=== PATIENT | male | born 1995 | race Caucasian/White ===

== ENCOUNTER 2019-03-24 23:15 | Emergency (ER) | payer BC, SELFPAY ==
[2019-03-24 23:17] VITALS: BP 153/99; PULSE 76; RESP 18; TEMP 36.4; O2SAT 95; BMI 29.5
--- NOTE | 2019-03-24 23:26 | ED.DCSUM_ITS ---
History of Present Illness Chief Complaint: Lower Extremity Injury Informant: Patient Onset: Today Context: Gradual Onset Timing: Continuous Current Severity: Moderate Maximum Severity: Moderate Narrative: The patient is an otherwise healthy male who presents to the emergency department with atraumatic right knee redness. The patient states that they recently got a dog. He states he has been on his knees playing with the dog. He states that this morning, he noticed 2 small red bumps the lateral aspect of his anterior right knee. He states since then, the redness is increased. He denies any fevers or chills. He states that it feels like it is throbbing. He is still able to ambulate without symptoms. The patient has no history of immunosuppression. He is otherwise been in his normal state of health. Prior similar symptoms: No Recent Illness/Hospitalization: No Past Medical History - Allergies and Home Meds Allergies/Adverse Reactions: Allergies No Known Allergies Allergy (Verified 03/24/19 23:16) Primary Care Physician: Felix Coronel III, MD [Primary Care Provider] - Prior records reviewed: Yes Past Medical History: None Surgical History: no surgical history Smoking Status: Never smoker Review of Systems General: Denies: Chills, Fever, Sweats Eyes: Denies: Visual changes - bilaterally, Diplopia ENT: Denies: Rhinorrhea, Sore throat Cardiovascular: Denies: Chest pain, Palpitations Respiratory: Denies: Dyspnea, Cough, Dyspnea on exertion Gastrointestinal: Denies: Abdominal pain, Nausea, Vomiting, Diarrhea, Melena, Hematochezia Genitourinary: Denies: Dysuria, Hematuria, Frequency Musculoskeletal: Denies: Back pain, Extremity Pain Skin: Denies: Rash, Wounds Neurological: Denies: Headache, Weakness, Numbness Physical Exam Vital Signs/Narrative: Vital Signs Temp Pulse Resp BP Pulse Ox 03/24/19 23:17 97.5 F L 76 18 153/99 H 95 Inital Vital Signs reviewed: Yes General: Well nourished, Well developed, No Acute Distress Head: Normocephalic, Atraumatic Eyes: Perrl, EOMI ENT: Moist mucous membranes, No rhinorrhea Neck: Supple, Nontender Cardiovascular: Regular rate, Regular rhythm, No murmurs Respiratory: No distress, CTA bilaterally, Chest nontender Abdomen: Soft, Nontender, Nondistended, Normal bowel sounds Back: Nontender, Normal Inspection Extremities: No edema, Tenderness - There is a 4 cm ovoid patch of cellulitis lateral to the patella not overlying the bursa on the right lateral knee. There is no pain with small arc range of motion. There is no effusion of the knee. There is no central fluctuance. Skin: Normal color, No rash Neurological: Alert, Oriented x3, Cranial nerves II-XII grossly intact, Normal Strength, Normal Sensation Psychological: Normal affect, Normal Mood Diagnostic/Tx/Re-eval - Medical Decision Making The patient symptoms do seem more lateral than a prepatellar bursitis. He has some localized skin changes, but it does not seem like it involves the joint. He has no fever. He has passive and active range of motion. There is no central fluctuance. At this point, I am going to treat the patient conservatively with oral antibiotics, Shree wrap, and warm compresses. I do not feel that there is a benefit to incision and drainage, but counseled him that if this is not improving over the next 24 to 48 hours to return to the emergency department. He is comfortable with this plan of care. Impression 1. Right knee cellulitis ED Disposition - Plan for ED Patient: Instructions: Cellulitis Prescriptions: Smz/Tmp Ds [Bactrim Ds] 1 tab PO BID #14 tab Prescription Printed Cephalexin [Keflex] 500 mg PO Q6 #40 cap Prescription Printed Hydrocodone Bitart/Apap 5-325 [[place] 5MG-325MG] 1 tab PO Q6H PRN PRN 3 Days #10 tab PRN Reason: Pain Prescription Printed Referrals: Felix Coronel III, MD [Primary Care Provider] -
[2019-03-24] MEDS: Smz/Tmp Ds Tablet 1 TABLET PO (23:34)
[2019-03-24] MEDS: HYDROcodone Bitartrate/Apap 5/325 Tablet PO (23:34)
[2019-03-24] MEDS: Cephalexin Suspension 250 MG/5 ML PO.SYRINGE 500 MG PO (23:38)
== END 2019-03-24 23:41 | disposition home or self-care (01) ==
LOC: ED 23:35
PROVIDERS: Emergency Provider Emergency Medicine; Family Provider Family Medicine; PCP Family Medicine
DX: L03.115 Cellulitis of right lower limb (principal)
CPT/HCPCS: 99283

== ENCOUNTER 2020-10-11 16:01 | Emergency (ER) | payer BC, SELFPAY ==
[2020-10-11 16:02] VITALS: BP 130/80; PULSE 106; RESP 18; TEMP 37; O2SAT 99; BMI 30.9
[2020-10-11 16:05] VITALS: BP 130/80; PULSE 98; RESP 18; TEMP 37; O2SAT 99
--- NOTE | 2020-10-11 17:40 | RAD_ITS ---
HISTORY: + COVID EXAMINATION/TECHNIQUE: XR Chest 1 View: Portable upright AP chest x-ray COMPARISON: None FINDINGS: LINES/DEVICES: None. LUNGS: No consolidation, edema or effusion. No pneumothorax. MEDIASTINUM AND CARDIOVASCULAR STRUCTURES: Cardiac silhouette not enlarged. Central airways and mediastinal contour are unremarkable. BONES AND SOFT TISSUES: No acute bony abnormalities. RAD/Chest 1 View (Portable) IMPRESSION: No radiographic evidence of acute cardiopulmonary disease. at 1758 Reported and signed by: Nelson Champion MD Electronically Signed: Nelson Champion MD at 17:57 EDT Tel , Service support ,
--- NOTE | 2020-10-11 18:19 | EDS_ITS ---
HPI HPI - URI History of Present Illness Chief Complaint: Cough Narrative Narrative: Patient presents with fever, cough, and body aches, with concern for COVID-19. He states his symptoms began on Sunday, approximately 4 days ago. She had a fever all weekend, but perhaps broke yesterday. Of note, his family members have tested positive for COVID-19. He was tested yesterday, with results pending. He presents because of the cough that is nonproductive, the m yalgias, and the shortness of breath. He has chest pain when he coughs, and it also lingers even after he is not coughing. He has pronounced body aches and feels very tired. He denies any significant past medical history. ROS ROS ED ROS Narrative Constitutional: Positive fever, positive chills. Positive malaise and fatigue. HEENT: No sore throat. No neck pain. No loss of vision. No rhinorrhea. Cardiovascular: Positive chest pain. No palpitations. No pedal edema. Respiratory: Positive nonproductive cough, positive shortness of breath. Abdominal: No abdominal pain. No nausea. No vomiting. Genitourinary: No dysuria. No hematuria. Neurologic: No headaches. No dizziness. No lightheadedness. Skin: No rash. No change in color. Musculoskeletal: Positive myalgias. PFSH PFSH Home Medications cephalexin 500 mg PO Q6 #40 cap 03/24/19 [Rx Last Taken Unknown] sulfamethoxazole-trimethoprim 1 tab PO BID #14 tab 03/24/19 [Rx Last Taken Unknown] albuterol sulfate [Ventolin HFA] 1 - 2 puff INHALATION Q4H PRN PRN #18 g NS 10/11/20 [Rx Last Taken Unknown] Allergy/AdvReac Type Severity Reaction Status Date / Time No Known Allergies Allergy Verified 03/24/19 23:16 Social History Smoking Status: Never smoker EXAM Physical Exam Narrative Exam Narrative: Afebrile. Vital signs noted. HEENT: Normocephalic. Atraumatic. PERRL, EOMI. Neck soft and supple. Cardiovascular: Regular rate and rhythm. No murmurs, rubs, or gallops appreciated. Respiratory: No tachypnea. Lungs clear to auscultation bilaterally. Gastrointestinal: Abdomen soft, nontender, with normoactive bowel sounds. No rebound or guarding. Neurological: Nonfocal, nonlateralizing. Skin: No rash. Normal color. No pallor. Musculoskeletal: No pedal edema. Full range of motion extremities. Const Vital Signs: 10/11/20 16:02 10/11/20 16:05 10/11/20 16:30 Temperature 98.6 F 98.6 F Temperature Source Temporal Temporal Pulse Rate 106 H 98 Respiratory Rate 18 18 Respiratory Effort Normal Respiratory Pattern Normal Blood Pressure 130/80 H 130/80 H Blood Pressure Mean 96 96 Pulse Ox 99 99 Oxygen Delivery Method Room Air Room Air MDM MDM MDM Narrative Medical decision making narrative: Chest x-ray was obtained which shows no radiographic evidence of acute cardiopulmonary disease. At this point in time, I do feel that he can be discharged safely home, and he was told to assume that he is positive for COVID-19. She will be symptomatic. He will take [id number] antipyretics. He will self isolate at home. He will return with any increased shortness of breath, new or worsening symptoms. Disposition is discharged home in stable condition. Lab Data Attestation: I reviewed the patient's lab results. Radiography Diagnostic Testing: Radiology Impression Chest X-Ray 10/11/20 17:40 IMPRESSION: No radiographic evidence of acute cardiopulmonary disease. at 1758 Reported and signed by: Nelson Champion MD Electronically Signed: Nelson Champion MD at 17:57 EDT Tel , Service support , Discharge Plan Triage Chief Complaint: Cough ED Provider: Jai Santos Dx/Rx/DC Orders Clinical Impression: COVID-19 determined by clinical diagnostic criteria Instructions: Coronavirus Disease 2019 (COVID-19): Overview, Coronavirus Disease 2019 (COVID-19): Caring for Yourself or Others Prescriptions: New albuterol sulfate [Ventolin HFA] 90 mcg/actuation HFA aerosol inhaler 1 - 2 puff inhalation Q4H PRN PRN (Reason: Wheezing) Qty: 18 RF: 0 No Action sulfamethoxazole-trimethoprim 1 TABLET tablet 1 tab PO BID Qty: 14 RF: 0 cephalexin 500 MG capsule 500 mg PO Q6 Qty: 40 RF: 0 Primary Care Provider: Care Physician,No Primary Referrals: Care Physician,No Primary [Primary Care Provider] - Disposition Disposition: Home, Self Care
[2020-10-11 18:35] VITALS: RESP 16
== END 2020-10-11 18:36 | disposition home or self-care (01) ==
PROVIDERS: Emergency Provider Emergency Medicine
DX: U07.1 COVID-19 (principal)
CPT/HCPCS: 71045; 99282

== ENCOUNTER 2020-10-14 20:42 | Emergency (ER) | payer BC, SELFPAY ==
[2020-10-14 20:44] VITALS: BP 113/78; PULSE 90; RESP 16; TEMP 37.1; O2SAT 97; BMI 30.4
--- NOTE | 2020-10-14 21:29 | EKG12_ITS ---
Test Reason : CP Blood Pressure : / mmHG Vent. Rate : 096 BPM Atrial Rate : 096 BPM P-R Int : 128 ms QRS Dur : 084 ms QT Int : 330 ms P-R-T Axes : 044 032 023 degrees QTc Int : 416 ms Normal sinus rhythm Nonspecific T wave abnormality Abnormal ECG Confirmed by CASEY HILL, LACY ([id number]), legal editor KEYSHAWN HOGUE ([id number]) on 10/18/2020 10:05:04 AM Referred By: DAISY Confirmed By:LACY PEÑA MD
--- NOTE | 2020-10-14 21:30 | EDS_ITS ---
HPI History of Present Illness Chief Complaint: Cough Informant: patient Narrative Narrative: Patient is a 25-year-old male that was recently diagnosed with Covid presenting with worsening cough, lightheadedness, nausea and hemoptysis. Patient states he started having symptoms 1 week ago and was diagnosed earlier this week with Covid. He states for the past 2 days his cough has been intensifying and now he feels nauseous and lightheaded whenever he stands up. He states he will get dry heaves. He said decreased oral intake. He can try to drink plenty of fluids but his urine has been getting darker. Patient is complain of body aches especially in his low back and his legs. He notes that he has chest discomfort that he describes as a pressure and pleuritic in nature. He has been taking intermittent ibuprofen for symptoms. He denies any swelling of his legs. [place] any history of DVT or PE. He is not on any blood thinners. Patient states today when he went to clear his throat and cough he had small amount of blood, but no sputum. This plus his lightheadedness is what triggered him to come to the emergency room. No other complaints at this time. Patient has not had his Covid vaccine. PFSH PFSH Home Medications ibuprofen 600 mg PO Q6H PRN PRN #20 tab 10/15/20 [Rx Last Taken Unknown] ondansetron HCl [Zofran] 4 mg PO Q8H PRN #14 tab 10/15/20 [Rx Last Taken Unknown] Allergy/AdvReac Type Severity Reaction Status Date / Time No Known Allergies Allergy Verified 10/14/20 20:44 Social History Smoking Status: Never smoker ROS ROS ED Constitutional Constitutional ED: Reports chills; Denies fever(s) Eyes Eyes: Denies change in vision ENT ENT ED: Denies ear pain, rhinorrhea or sore throat Cardiovascular Cardiovascular: Reports chest pain; Denies palpitations Respiratory/Chest Respiratory/Chest: Reports cough and dyspnea on exertion; Denies dyspnea Gastrointestinal Gastrointestinal: Reports diarrhea and nausea; Denies abdominal pain, constipation or vomiting Genitourinary Genitourinary ED: Denies dysuria or hematuria Musculoskeletal Musculoskeletal: Reports back pain and myalgias; Denies arthralgias or neck pain Integumentary Denies rash Neurologic Neurologic: Reports weakness; Denies headache(s) Psychiatric Psychiatric: Denies anxiety or depression EXAM Physical Exam Const Vital Signs: 10/14/20 20:44 10/14/20 23:56 Temperature 98.7 F Temperature Source Temporal Pulse Rate 90 Respiratory Rate 16 16 Blood Pressure 113/78 Blood Pressure Mean 89 Pulse Ox 97 Positive well nourished and well developed General Appearance ED: well developed HEENT Reports dry mucous membranes Negative for tenderness Mouth ED: Yes dry mucous membranes Mouth: dry mucous membranes Eyes EOMs intact bilaterally Neck no lymphadenopathy, supple and no JVD General: Negative for tenderness Chest Wall inspection of chest normal Resp normal respiratory effort and clear to auscultation bilaterally Cardio regular rate, regular rhythm and no murmurs GI normal to inspection, nondistended, normoactive bowel sounds and non-tender Back/Spine no CVA tenderness Extremity normal to inspection General Extremety ED: Negative for edema or tenderness General Extremity: Negative for edema Neuro oriented x3, CN's II-XII intact bilaterally and no sensory deficits noted Sensorium / Orientation: alert Motor Exam: strength 5/5 throughout Psych mental status grossly normal Skin no rashes or lesions noted MDM MDM MDM Narrative Medical decision making narrative: Patient evaluated for generalized weakness and fatigue as well as hemoptysis. He said worsening cough. Patient does have a recent diagnosis of Covid. On evaluation he appears mildly dehydrated but otherwise nontoxic. Given his recent Covid diagnosis and now hemoptysis I did obtain a D-dimer as he is on day 7 of his illness and he has increased potential for clotting. This was elevated and CTA shows some mild findings consistent with a viral pneumonia but no PE. EKG does not show any acute process. His CPK is normal as well as his high sensitive troponin. He has a normal BMP and CBC. Urinalysis does show 150 ketones likely consistent with dehydration. Patient is given a liter of IV fluids as well as IV Zofran. Is also given IV Toradol. Patient be discharged home. I suspect his hemoptysis is just from localized i rritation associate with coughing. He is counseled on continued symptomatic treatment including fluids, NSAIDs and will be given a prescription for Zofran. Patient verbalizes agreement nursing with this plan. He is given return precautions. Lab Data Attestation: I reviewed the patient's lab results. Labs: Laboratory Results - last 24 hr 10/14/20 10/14/20 10/14/20 21:30 21:30 21:30 WBC 5.3 RBC 5.27 Hgb 16.1 Hct 46.8 MCV 88.8 MCH 30.6 MCHC 34.4 RDW Std Deviation 40.9 RDW Coeff of Jessica 12.5 Plt Count 116 L MPV 9.7 Immature Gran % (Auto) 0.200 Neut % (Auto) 83.8 H Lymph % (Auto) 10.9 L Hud[place] % (Auto) 4.9 Eos % (Auto) 0.0 Baso % (Auto) 0.2 Absolute Neuts (auto) 4.5 Absolute Lymphs (auto) 0.58 L Nucleated RBC % 0 Differential Comment SEE COMMENT Platelet Estimate SLT DEC RBC Morphology N CHROM Anisocytosis RARE D-Dimer Quant (PE/DVT) Sodium 141 Potassium 3.5 Chloride 107 Carbon Dioxide 24.0 Anion Gap 10 BUN 21 H Creatinine 0.93 Estim Creat Clear Calc 123.19 Est GFR (MDRD) Af Amer 125 Est GFR (MDRD) Non-Af 103 BUN/Creatinine Ratio 22.6 H Glucose 99 Calcium 8.6 Total Bilirubin 0.90 AST 29 ALT 51 Alkaline Phosphatase 68 Total Creatine Kinase 69 Troponin I High Sens 4.1 Total Protein 7.3 Albumin 3.9 Globulin 3.4 Albumin/Globulin Ratio 1.1 Lipase 123 Urine Color Yellow Urine Clarity Clear Urine pH 6.0 Ur Specific Carlton 1.020 Urine Protein 30 H Urine Glucose (UA) Normal Urine Ketones 150 A* Urine Occult Blood Negative Urine Nitrite Negative Urine Bilirubin Negative Urine Urobilinogen 4 H Ur Leukocyte Esterase 25 H Urine RBC 0 SEEN Urine WBC 0 SEEN Ur Squamous Epith Cells 0 SEEN Urine Bacteria RARE Urine Mucus 1+ 10/14/20 21:41 WBC RBC Hgb Hct MCV MCH MCHC RDW Std Deviation RDW Coeff of Jessica Plt Count MPV Immature Gran % (Auto) Neut % (Auto) Lymph % (Auto) Hudspeth % (Auto) Eos % (Auto) Baso % (Auto) Absolute Neuts (auto) Absolute Lymphs (auto) Nucleated RBC % Differential Comment Platelet Estimate RBC Morphology Anisocytosis D-Dimer Quant (PE/DVT) 0.50 H Sodium Potassium Chloride Carbon Dioxide Anion Gap BUN Creatinine Estim Creat Clear Calc Est GFR (MDRD) Af Amer Est GFR (MDRD) Non-Af BUN/Creatinine Ratio Glucose Calcium Total Bilirubin AST ALT Alkaline Phosphatase Total Creatine Kinase Troponin I High Sens Total Protein Albumin Globulin Albumin/Globulin Ratio Lipase Urine Color Urine Clarity Urine pH Ur Specific Carlton Urine Protein Urine Glucose (UA) Urine Ketones Urine Occult Blood Urine Nitrite Urine Bilirubin Urine Urobilinogen Ur Leukocyte Esterase Urine RBC Urine WBC Ur Squamous Epith Cells Urine Bacteria Urine Mucus Radiography Diagnostic Testing: Radiology Impression Chest X-Ray 10/14/20 22:00 IMPRESSION: No evidence of acute cardiopulmonary process. at 2231 Reported and signed by: Darius Vyas MD Electronically Signed: Darius Vyas MD at 22:30 EDT Tel , Service support , Chest CTA 10/14/20 22:29 IMPRESSION: 1. Limited opacification of the pulmonary artery degrades exam. No suspicious filling defect in the pulmonary arteries to suggest pulmonary embolism. 2. Numerous small patchy bilateral groundglass opacities most prominent in the lower lungs compatible with atypical viral pneumonia in the appropriate setting. 3. Mild reactive mediastinal and bilateral hilar adenopathy. Individualized dose optimization techniques were used for this CT. at 0013 Reported and signed by: Darius Vyas MD Electronically Signed: Darius Vyas MD at 0:12 EDT Tel , Service support , Rhythm Strip Rhythm Strip: Sinus Rhythm Rate: 96 Ectopy: None EKG Initial EKG: Attestation: I personally reviewed and interpreted this EKG as follows: Interpretation: Sinus Rhythm Comments: Normal sinus rhythm at a rate of 96 Normal axis Normal intervals Normal ST segments Discharge Plan Triage Chief Complaint: Cough ED Provider: Lucy Torres Dx/Rx/DC Orders Clinical Impression: Dehydration, Cough with hemoptysis, COVID-19 determined by clinical diagnostic criteria Instructions: Coronavirus Disease 2019 (COVID-19): Caring for Yourself or Others, ED Hemoptysis Prescriptions: New ondansetron HCl [Zofran] 4 mg tablet 4 mg PO Q8H PRN (Reason: nausea and vomiting) Qty: 14 RF: 0 ibuprofen 600 mg tablet 600 mg PO Q6H PRN PRN (Reason: fever or pain) Qty: 20 RF: 0 Primary Care Provider: Care Physician,No Primary Referrals: Care Physician,No Primary [Primary Care Provider] - Disposition Disposition: Home, Self Care
[2020-10-14] MEDS: Ketorolac 15 MG/ML Vial IV (21:40)
[2020-10-14] MEDS: 0.9% Normal Saline 1,000 ML 1000 ML IV (21:40)
[2020-10-14] MEDS: Ondansetron 4 MG/2 ML Vial IV (21:41)
[2020-10-14 21:43] LABS: Red Blood Cells-Urine 0 SEEN /hpf (0-5); Squamous Epithelial Cells - UA 0 SEEN /hpf (0-5); White Blood Cells 0 SEEN /hpf (0-5)
[2020-10-14 21:47] LABS: Color, Urine Yellow (Yellow); Glucose, Dipstick Normal (Normal); Leukocyte Esterase-Dipstick 25 /ul (Negative); Nitrite-Dipstick Negative (Negative); Occult Blood-Urine Negative /ul (Negative); Protein-Dipstick 30 mg/dl (Negative); Urine Bilirubin Dipstick Negative (Negative); Urine Clarity Clear (Clear); Urine Urobilinogen 4 mg/dl (Normal)
[2020-10-14 21:54] LABS: Ketone-Dipstick 150 mg/dl (Negative)
[2020-10-14 21:56] LABS: Bacteria RARE /hpf (None Seen); Mucous, Urine 1+ /hpf (<or=2+)
--- NOTE | 2020-10-14 22:00 | RAD_ITS ---
HISTORY: chest pain, cough EXAMINATION/TECHNIQUE: XR Chest 1 View: COMPARISON: October 11, 2020 FINDINGS: LINES/DEVICES: None. LUNGS: No airspace consolidation. Unremarkable interstitium. No effusion. No pneumothorax. MEDIASTINUM: No cardiomegaly. MUSCULOSKELETAL: No acute osseous finding. RAD/Chest 1 View (Portable) IMPRESSION: No evidence of acute cardiopulmonary process. at 2231 Reported and signed by: Darius Vyas MD Electronically Signed: Darius Vyas MD at 22:30 EDT Tel , Service support ,
[2020-10-14 22:03] LABS: Absolute Lymphocyte Count 0.58 X10^3/uL (0.83-4.51); Absolute Neutrophil Count 4.5 X10^3/uL (2.0-7.7); Basophil# 0.01 X10^3/uL; Basophil% 0.2 % (0-1); Hematocrit 46.8 % (40-54); Hemoglobin 16.1 g/dL (13.0-16.5); Lymphocyte # 0.58 X10^3/ul (0.83-4.51); Lymphocyte % 10.9 % (19-41); Mean Corp Hgb Conc 34.4 g/dL (32-36); Mean Corpuscular Hgb 30.6 pg (27.0-32.0); Mean Corpuscular Volume 88.8 fL (80-94); Mean Platelet Vol. 9.7 fl (6.2-12.0); Monocyte# 0.26 X10^3/uL; Monocyte% 4.9 % (0-10); NRBC Flagged by Analyzer 0 % (0-5); Neutrophil # 4.45 X10^3/uL (2.7-7.7); Neutrophil % 83.8 % (47-70); POSITIVE DIFFERENTIAL YES; Platelet Count 116 K/mm3 (150-450); RBC Distribution Width CV 12.5 % (11.6-14.6); RBC Distribution Width SD 40.9 fl (35.1-43.9); Red Blood Count 5.27 M/mm3 (4.6-6.2); White Blood Count 5.3 K/mm3 (4.4-11.0)
[2020-10-14 22:12] LABS: ALB/GLOB Ratio 1.1 RATIO (0.9-2.4); AST(SGOT) 29 U/L (15-37); Alanine Aminotransfer ALT/SGPT 51 U/L (16-61); Albumin, Serum 3.9 g/dL (3.2-5.0); Alkaline Phosphatase 68 U/L (45-117); Anion Gap 10 (5-15); BUN 21 mg/dL (7-18); BUN/Creat Ratio 22.6 RATIO (10-20); CPK Total, Creatine Kinase 69 U/L (39-308); Calcium,Total 8.6 mg/dL (8.5-10.1); Chloride 107 mmol/L (98-107); Creatinine, Serum 0.93 mg/dL (0.70-1.30); EST Glomerular Filtration Rate 103 mL/min (>60); Est Glom Filt Rate - Afr Amer 125 mL/min (>60); Estimated Creatinine Clearance 123.19 ml/min; Globulin 3.4 g/dL (2.2-4.2); Glucose 99 mg/dL (74-106); Lipase 123 U/L (73-393); Potassium 3.5 mmol/L (3.5-5.1); Protein, Total 7.3 g/dL (6.4-8.2); Sodium Level 141 mmol/L (136-145); Troponin-I HS 4.1 pg/mL (3.0-78.5)
[2020-10-14 22:22] LABS: Differential Indicated SCAN CRITERIA MET
--- NOTE | 2020-10-14 22:29 | CT_ITS ---
HISTORY: cough, + covid, hemoptysis TECHNIQUE: Helically acquired images were obtained of the chest following 100mL Isovue-370 IV contrast as per pulmonary angiogram protocol with 3D reconstructions. A radiation dose optimization technique was used for this scan. COMPARISON: Chest radiograph October 14, 2020 FINDINGS: # of images incl. paperwork: [id number] THYROID IMAGED PORTION: Unremarkable. PULMONARY ARTERIES: Limited pulmonary arterial enhancement with contrast bolus timing favoring the aorta. No suspicious filling defects within the pulmonary arteries to suggest bone embolus. No gross arterial enlargement. AORTA/AORTIC ARCH: No ectasia. No dissection. HEART/PERICARDIUM: No cardiomegaly. No significant pericardial fluid. ADENOPATHY: Scattered mediastinal and bilateral hilar lymph nodes up to 6 mm in short axis. LUNG PARENCHYMA: Numerous small patchy bilateral groundglass airspace opacity most prominent in the lung bases PLEURAL EFFUSION: None. PNEUMOTHORAX: None. UPPER ABDOMEN IMAGED PORTION: Unremarkable. MUSCULOSKELETAL: No acute osseous finding. CT/CTA Chest W/WO Contrast IMPRESSION: 1. Limited opacification of the pulmonary artery degrades exam. No suspicious filling defect in the pulmonary arteries to suggest pulmonary embolism. 2. Numerous small patchy bilateral groundglass opacities most prominent in the lower lungs compatible with atypical viral pneumonia in the appropriate setting. 3. Mild reactive mediastinal and bilateral hilar adenopathy. Individualized dose optimization techniques were used for this CT. at 0013 Reported and signed by: Darius Vyas MD Electronically Signed: Darius Vyas MD at 0:12 EDT Tel , Service support ,
[2020-10-14 22:36] LABS: Anisocytosis RARE; Platelet Estimate SLT DEC (ADEQ); Red Cell Morphology N CHROM NORMAL (NORM C&C)
[2020-10-14 23:56] VITALS: RESP 16
[2020-10-15 00:34] VITALS: BP 116/64; PULSE 90; RESP 18; O2SAT 98
== END 2020-10-15 00:35 | disposition home or self-care (01) ==
PROVIDERS: Emergency Provider Emergency Medicine
DX: U07.1 COVID-19 (principal); E86.0 Dehydration; R04.2 Hemoptysis
CPT/HCPCS: 71045; 71275; 80053; 81001; 82550; 83690; 84484; 85025; 85379; 93005; 96361; 96374; 96375; 99282; J7030; Q9967; A4216; J2405

== ENCOUNTER 2020-10-19 11:59 | Observation (INO) | payer BC, SELFPAY ==
[2020-10-19] VITALS (9 sets, daily range): BP systolic 111–131; BP diastolic 72–98; PULSE 78–113; RESP 18–26; TEMP 36.3–38.1; O2SAT 92–96; BMI 29.3; BMI 27.4
--- NOTE | 2020-10-19 12:22 | EX.ED.DYSGE1 ---
HPI History of Present Illness Chief Complaint: Fever Detail of Chief Complaint: Cough and shortness of breath Narrative Narrative: Patient presents to the emergency department with complaint of shortness of breath and cough. Patient complains of fatigue and body aches. He is lost sense of taste and smell. Patient was diagnosed with COVID-19 8 days ago and has had symptoms for about 11 days. Patient's fianc? had Covid about 3 weeks ago and had a mild version. Patient does not have some sputum production at times and coughing up some clear phlegm. He has had nausea and dry heaves. Patient has had 2 other visits to the ER for same and on October 14 had a CTA of the chest that was negative for PE. Prior similar symptoms: No PFSH PFSH Home Medications ibuprofen 600 mg PO Q6H PRN PRN #20 tab 10/15/20 [Rx Last Taken Unknown] ondansetron HCl [Zofran] 4 mg PO Q8H PRN #14 tab 10/15/20 [Rx Last Taken Unknown] Allergy/AdvReac Type Severity Reaction Status Date / Time No Known Allergies Allergy Verified 10/19/20 11:59 Social History Smoking Status: Never smoker ROS ROS ED Constitutional Constitutional ED: Reports systems reviewed and no addt'l complaints, except as documented and fever(s); Denies body ache(s), change in weight or chills Eyes Eyes: Denies acute decrease in peripheral vision, change in vision, double vision or loss of vision ENT ENT ED: Reports none; Denies ear pain, lip swelling, loss taste/smell, neck pain, otalgia or sore throat Cardiovascular Cardiovascular: Reports none; Denies abdominal pain, chest pain with activity, leg edema, lightheadedness, palpitations, rapid heart rate or syncope Respiratory/Chest Respiratory/Chest: Reports none and cough; Denies change in mental status, dry cough, dyspnea, hemoptysis, shortness of breath at rest or shortness of breath with exertion Gastrointestinal Gastrointestinal: Reports none and nausea; Denies abdominal pain, change in stool character, diarrhea, hematemesis, hematochezia, melena, rectal bleeding or vomiting Genitourinary Genitourinary ED: Reports none; Denies abdominal discomfort, anuria, dysuria, genital pain or polyuria Musculoskeletal Musculoskeletal: Reports none and myalgias; Denies arthralgias, back pain, difficulty walking, extremity pain or muscle weakness Integumentary Reports none; Denies abscess or rash Neurologic Neurologic: Reports none and headache(s); Denies abnormal gait, confusion, focal weakness, frequent falls, loss of vision, numbness, paresthesias, radicular pain, vertigo or weakness Psychiatric Psychiatric: Reports systems reviewed and no addt'l complaints, except as documented and none; Denies behavioral changes, confusion, difficulty concentrating, hallucinations, suicidal ideation, tactile hallucinations or visual hallucinations Endocrine Endocrinology: Denies none, cold intolerance, excessive sweating, fatigue or heat intolerance Hematologic/Lymphatic Hematologic/Lymphatic: Reports none; Denies anemia, easy bleeding or easy bruising Allergic/Immunologic Allergic/Immunologic ED: Denies as per HPI, none, lip swelling, mouth swelling, throat swelling, tongue swelling or hives EXAM Physical Exam Const Vital Signs: 10/19/20 12:00 10/19/20 12:39 Temperature 97.3 F L 97.6 F L Temperature Source Temporal Temporal Pulse Rate 113 H 102 H Respiratory Rate 18 26 H Respiratory Effort Short of Breath Respiratory Pattern Tachypnea Blood Pressure 111/88 H 131/77 H Blood Pressure Mean 95 95 Pulse Ox 92 94 Oxygen Delivery Method Room Air Room Air Positive well nourished and well developed General Appearance ED: well developed and NAD HEENT Reports TM's clear and moist mucous membranes normocephalic and atraumatic; Negative for trauma or tenderness Tympanic Membrane ED: Yes TM's clear Eyes PERRL and EOMs intact bilaterally General Eye ED: Negative for pale conjunctiva or scleral icterus Neck no lymphadenopathy, supple and no JVD General: Negative for tenderness Chest Wall inspection of chest normal and palpation of chest normal Chest: Negative for tenderness Resp normal respiratory effort and No clear to auscultation bilaterally Effort and Inspection: Negative for respiratory distress or pain with movement Auscultation: rhonchi; Negative for wheezes or diminished lung sounds Cardio regular rate, regular rhythm, S1 normal heart sound, S2 normal heart sound and no murmurs Peripheral Pulses: pulses 2+ throughout GI normal to inspection, nondistended, normoactive bowel sounds, soft to palpation, non-tender, non-distended and no masses Back/Spine no CVA tenderness and no thoracic nor lumbar tenderness Extremity normal to inspection General Extremety ED: Negative for edema General Extremity: Negative for edema Neuro oriented x3, CN's II-XII intact bilaterally, no sensory deficits noted and gait normal Sensorium / Orientation: awake, alert, oriented to person, oriented to place and oriented to time Motor Exam: strength 5/5 throughout and strength abnormal Psych mental status grossly normal Skin no rashes or lesions noted and no wounds MDM MDM MDM Narrative Medical decision making narrative: Patient had an ambulatory pulse ox of 89%. Chest x-ray shows bilateral infiltrates consistent with Covid pneumonia. Case will be discussed with hospitalist evaluate patient for admission Lab Data Attestation: I reviewed the patient's lab results. Labs: Laboratory Results - last 24 hr 10/19/20 10/19/20 10/19/20 12:32 12:32 12:32 WBC 5.8 RBC 4.94 Hgb 15.3 Hct 42.8 MCV 86.6 MCH 31.0 MCHC 35.7 RDW Std Deviation 39.8 RDW Coeff of Jessica 12.4 Plt Count 149 L MPV 9.1 Immature Gran % (Auto) 0.500 Neut % (Auto) 84.7 H Lymph % (Auto) 10.1 L [place] % (Auto) 4.5 Eos % (Auto) 0.0 Baso % (Auto) 0.2 Absolute Neuts (auto) 4.9 Absolute Lymphs (auto) 0.59 L Nucleated RBC % 0 Differential Comment SCANNED Sodium 140 Potassium 3.7 Chloride 105 Carbon Dioxide 27.0 Anion Gap 8 BUN 14 Creatinine 0.82 Estim Creat Clear Calc 139.72 Est GFR (MDRD) Af Amer 145 Est GFR (MDRD) Non-Af 120 BUN/Creatinine Ratio 17.2 Glucose 100 Lactic Acid 1.0 Calcium 8.6 Radiography Chest X-Ray - ED: 1 View Diagnostic Testing: Radiology Impression Chest X-Ray 10/19/20 12:45 IMPRESSION: Bilateral pneumonia. CT may be useful. Electronically Signed: David Jones MD at 13:01 EDT Tel , Service support , 1 view chest x-ray obtained interpreted by myself as bilateral infiltrates. Radiology in agreement. Discharge Plan Dx/Rx/DC Orders Clinical Impression: Pneumonia due to 2019 novel coronavirus, Hypoxemia Disposition Disposition: Acute Care Hospital [facility]
[2020-10-19] MEDS: Ondansetron 4 MG/2 ML Vial IV (12:42)
--- NOTE | 2020-10-19 12:45 | RAD_ITS ---
STUDY: X-RAY CHEST REASON FOR EXAM: Male, 25 years old. dyspnea TECHNIQUE: Single AP portable view of the chest. COMPARISON: 10/14/2020 FINDINGS: Patchy alveolar opacities in both lungs consistent with bilateral pneumonia. There is no demonstrated pleural abnormality. Normal size heart. Normal mediastinum and ericka. Normal visualized pulmonary arteries. Normal visualized aortic arch and descending thoracic aorta. Normal visualized thoracic spine. Normal visualized ribs, clavicles, and shoulders. There is no demonstrated abnormality of the visualized soft tissue structures of the upper abdomen. RAD/Chest 1 View (Portable) IMPRESSION: Bilateral pneumonia. CT may be useful. Electronically Signed: David Jones MD at 13:01 EDT Tel , Service support ,
[2020-10-19 12:49] LABS: Absolute Lymphocyte Count 0.59 X10^3/uL (0.83-4.51); Absolute Neutrophil Count 4.9 X10^3/uL (2.0-7.7); Basophil# 0.01 X10^3/uL; Basophil% 0.2 % (0-1); Hematocrit 42.8 % (40-54); Hemoglobin 15.3 g/dL (13.0-16.5); Lymphocyte # 0.59 X10^3/ul (0.83-4.51); Lymphocyte % 10.1 % (19-41); Mean Corp Hgb Conc 35.7 g/dL (32-36); Mean Corpuscular Volume 86.6 fL (80-94); Mean Platelet Vol. 9.1 fl (6.2-12.0); Monocyte# 0.26 X10^3/uL; Monocyte% 4.5 % (0-10); NRBC Flagged by Analyzer 0 % (0-5); Neutrophil # 4.94 X10^3/uL (2.7-7.7); Neutrophil % 84.7 % (47-70); POSITIVE DIFFERENTIAL YES; Platelet Count 149 K/mm3 (150-450); RBC Distribution Width CV 12.4 % (11.6-14.6); RBC Distribution Width SD 39.8 fl (35.1-43.9); Red Blood Count 4.94 M/mm3 (4.6-6.2); White Blood Count 5.8 K/mm3 (4.4-11.0)
[2020-10-19 12:50] LABS: Differential Indicated SCAN CRITERIA MET
[2020-10-19 13:03] LABS: Anion Gap 8 (5-15); BUN 14 mg/dL (7-18); BUN/Creat Ratio 17.2 RATIO (10-20); Calcium,Total 8.6 mg/dL (8.5-10.1); Chloride 105 mmol/L (98-107); Creatinine, Serum 0.82 mg/dL (0.70-1.30); EST Glomerular Filtration Rate 120 mL/min (>60); Est Glom Filt Rate - Afr Amer 145 mL/min (>60); Estimated Creatinine Clearance 139.72 ml/min; Glucose 100 mg/dL (74-106); Potassium 3.7 mmol/L (3.5-5.1); Sodium Level 140 mmol/L (136-145)
[2020-10-19 13:15] LABS: Differential Comment SCANNED
--- NOTE | 2020-10-19 13:26 | PCM.HP.STD ---
HPI - General General Date of Admission: 10/19/20 Date of Service: 10/19/20 Chief Complaint: Recent COVID +, ongoing F/C/SOB/N/V HPI Narrative The patient is a 25 y/o M w/ PMHx: Overweight, Anxiety, history of recently diagnosed Covid with cough, lightheadedness, nausea, emesis with symptoms initially starting approximately on October 08 with eventual ED evaluation 10/14/2020 for ongoing worsening Covid symptoms discharged at that time given clinical stability with 10/14/2020 CTPA with appearance of Covid pneumonia at that time with no obvious evidence of PE who now re-presents to the [facility] ED on 10/19/20 with worsening fatigue, malaise, body aches, minimally productive cough with dyspnea with nausea, dry heaves not improving prompt eventual ED presentation. Patient was not vaccinated for Covid. Patient significant was also ill with Covid but did recover. Work-up in the ED included T 97.6, heart rate 113, BP 131/77, respiratory rate 26, oxygenation range 92 to 94% on room air, CBC with WBC 5.8, hemoglobin 15.3, platelet 149 with lymphopenia, BMP unremarkable, lactic acid 1.0, chest x-ray with bilateral patchy alveolar opacities consistent with Covid pneumonia, blood culture x2 pending per ED. In the ED patient ministered Zofran as well as Decadron 6 mg IV x1. [facility] Medical History (Updated 10/19/20 @ 16:33 by Giselle Cleaning) Anxiety Inguinal hernia Home Medications ibuprofen 600 mg PO Q6H PRN PRN #20 tab 10/15/20 [Rx Last Taken 10/19/20] ondansetron HCl [Zofran] 4 mg PO Q8H PRN #14 tab 10/15/20 [Rx Last Taken 10/18/20] albuterol sulfate 1 - 2 inh INHALATION Q4H PRN 10/19/20 [History Last Taken 10/18/20] multivitamin 1 tab PO DAILY 10/19/20 [History Last Taken 10/19/20] Allergy/AdvReac Type Severity Reaction Status Date / Time No Known Allergies Allergy Verified 10/19/20 11:59 Family History (Updated 10/19/20 @ 20:[address] Shruthi Morrow MD) Father Hypertension HLD (hyperlipidemia) unable to obtain (Patient does not know any of his maternal family history.) Surgical History (Updated 10/19/20 @ 20:[address] Shruthi Morrow MD) S/P inguinal hernia repair Social History (Updated 10/19/20 @ 20:[address] Shruthi Morrow MD) household members: significant other Smoking Status: Never smoker alcohol intake: never substance use type: does not use ROS ROS Narrative Admission Review of Systems: CONSTITUTIONAL: No weight loss, + fever, chills, weakness or fatigue. HEENT: Eyes: No visual loss, blurred vision, double vision or yellow sclerae. Ears, Nose, Throat: No hearing loss, sneezing, congestion, runny nose or sore throat. SKIN: No rash or itching, lesions, wounds. CARDIOVASCULAR: + Pleuritic chest discomfort. No palpitations, edema, orthopnea, syncopal events. RESPIRATORY: + shortness of breath, cough with mild sputum, No wheezing. GASTROINTESTINAL: + anorexia, nausea, vomiting, diarrhea, abdominal pain, No melena, BRBPR. GENITOURINARY: No dysuria, frequency, urgency or retention. NEUROLOGICAL: No headache, dizziness, syncope, paralysis, ataxia, numbness or tingling in the extremities, focal weakness, change in bowel or bladder control, seizure. MUSCULOSKELETAL: + muscle, back pain, joint pain or stiffness. HEMATOLOGIC: No anemia, bleeding or bruising. LYMPHATICS: No enlarged nodes. No history of splenectomy. PSYCHIATRIC: + history of depression or anxiety. ENDOCRINOLOGIC: No reports of sweating, cold or heat intolerance. No polyuria or polydipsia. ALLERGIES: No history of asthma, hives, eczema or rhinitis. Vital Signs Vital Signs Vital Signs: 10/19/20 12:00 10/19/20 12:39 Temperature 97.3 F L 97.6 F L Temperature Source Temporal Temporal Pulse Rate 113 H 102 H Respiratory Rate 18 26 H Respiratory Effort Short of Breath Respiratory Pattern Tachypnea Blood Pressure 111/88 H 131/77 H Blood Pressure Mean 95 95 Pulse Ox 92 94 Oxygen Delivery Method Room Air Room Air Weight Weight: 204 lb 12.951 oz Body Mass Index (BMI) 29.3 Physical Exam Narrative Physical Examination: General: Awake, alert, oriented x 3 and cooperative, laying in the ED bed, fatigued appearing, no obvious distress. Skin: Normal color, normal turgor, no icterus, no cyanosis. HEENT: AT/NC, EOMI, PERRLA, dry MM, no carotid bruits or JVD noted. Lungs: Notably diminished, greater bases, decreased effort secondary to pleuritic pain with deep inspiration, no rales, ronchi or wheezing. Heart: Mildly tachycardic with regular rhythm; no gallop, rub audible. Abdomen: Soft, overweight, generalized discomfort with palpation with no rebound or guarding, ND, moderately hyperactive BS, no obvious HSM. Extremities: No cyanosis, clubbing, or edema. Neurological: Patient awake, alert, oriented as noted, cognitive function intact; pupils equally reactive to light and accommodation, cranial nerves II-XII grossly normal, moving all 4 extremities, no focal deficits, strength moderately global degree secondary to acute presentation. Psychiatric: Affect appears fatigued, ill-appearing, no acute evidence of depressive or anxiety feelings. Results Lab / Micro Data Result Diagrams: 10/19/20 12:32 10/19/20 12:32 Labs: Laboratory Results - last 24 hr 10/19/20 12:32: WBC 5.8, RBC 4.94, Hgb 15.3, Hct 42.8, MCV 86.6, MCH 31.0, MCHC 35.7, RDW Std Deviation 39.8, RDW Coeff of Jessica 12.4, Plt Count 149 L, MPV 9.1, Immature Gran % (Auto) 0.500, Neut % (Auto) 84.7 H, Lymph % (Auto) 10.1 L, [place] % (Auto) 4.5, Eos % (Auto) 0.0, Baso % (Auto) 0.2, Absolute Neuts (auto) 4.9, Absolute Lymphs (auto) 0.59 L, Nucleated RBC % 0, Differential Comment SCANNED 10/19/20 12:32: Sodium 140, Potassium 3.7, Chloride 105, Carbon Dioxide 27.0, Anion Gap 8, BUN 14, Creatinine 0.82, Estim Creat Clear Calc 139.72, Est GFR (MDRD) Af Amer 145, Est GFR (MDRD) Non-Af 120, BUN/Creatinine Ratio 17.2, Glucose 100, Calcium 8.6 10/19/20 12:32: Lactic Acid 1.0 Radiology Impression Chest X-Ray 10/19/20 12:45 IMPRESSION: Bilateral pneumonia. CT may be useful. Electronically Signed: David Jones MD at 13:01 EDT Tel , Service support , Assessment & Plan Assessment/Plan (1) Hypoxemia: (2) Pneumonia due to 2019 novel coronavirus: PLAN: The patient is a 25 y/o M w/ PMHx: Overweight, Anxiety and Depression, history of recently diagnosed Covid with cough, lightheadedness, nausea, emesis with symptoms initially starting approximately on October 08 with eventual ED evaluation 10/14/2020 for ongoing worsening Covid symptoms discharged at that time given clinical stability with 10/14/2020 CTPA with appearance of Covid pneumonia at that time with no obvious evidence of PE who now re-presents to the [facility] ED on 10/19/20 with worsening COVID symptoms. 1. Acute Dyspnea, Cough, Fever with Bilateral Pneumonia secondary to Acute Viral Syndrome, COVID-19, Worsening with Hypoxia: Will admit to the COVID unit, will maintain on oxygen with wean as tolerated to room air, PRN albuterol, HOB, IS parameters w/ pending sputum cultures, respiratory viral panel and urine antigens, will obtain repeat D-dimer, procalcitonin, CRP, CPK, Ferritin, LDH, trop and BNP as well as hepatic profile, continue supportive care including q 2 hour turning including prone given no prone bed availability and judicious hydration, closely monitor for worsening status for ARDS and multiorgan failure, will consult Infectious disease, will initiate and continue IV decadron x 10 doses, given presentation timeline not candidate for IV remdesivir. 2. Anxiety depression: Not on regimen, encourage continued outpatient follow-up with his primary care physician especially given recent presentation ongoing illness with potentially prolonged recovery. 3. DVT Prophylaxis: SCDs, Lovenox. Charges/Coding Visit Charges OBSV E&M: 46532 Initial observation care L3
[2020-10-19 14:25] LABS: D-Dimer Quantitative (DVT/PE) 0.95 FEU/ug/m (0.27-0.49)
[2020-10-19 14:32] LABS: AST(SGOT) 42 U/L (15-37); Alanine Aminotransfer ALT/SGPT 39 U/L (16-61); Albumin, Serum 3.5 g/dL (3.2-5.0); Alkaline Phosphatase 53 U/L (45-117); Bilirubin, Direct 0.33 mg/dL (0.00-0.30); Ferritin 684 ng/mL (26-388); Globulin 3.6 g/dL (2.2-4.2); LDH 542 U/L (87-241); Protein, Total 7.1 g/dL (6.4-8.2); Troponin-I HS 6.2 pg/mL (3.0-78.5)
[2020-10-19] MEDS: dexAMETHasone 4 MG/ML Vial 6 MG IV (15:07)
[2020-10-19] MEDS: 0.9% Normal Saline 1,000 ML 100 ML IV (17:59)
[2020-10-19] MEDS: guaiFENesin 10 ML UDC (200MG/10ML) 20 ML PO ×2 (18:00→22:37)
[2020-10-19] MEDS: Ibuprofen 400 MG Tablet PO ×2 (18:00→22:37)
[2020-10-19] MEDS: Enoxaparin 40 MG/0.4 ML Syringe SC (18:03)
[2020-10-19] MEDS: Famotidine 20 MG Tablet PO (18:03)
[2020-10-19] MEDS: Temazepam 15 MG Capsule PO (22:37)
[2020-10-19] MEDS: BENZOCAINE/MENTHOL 1 LOZENGE MUCOUS MEM (22:37)
[2020-10-20] VITALS (11 sets, daily range): BP systolic 117–131; BP diastolic 67–83; PULSE 64–79; RESP 18–20; TEMP 36.5–37.1; O2SAT 92–96
[2020-10-20] MEDS: BENZOCAINE/MENTHOL 1 LOZENGE MUCOUS MEM (04:17)
[2020-10-20] MEDS: guaiFENesin 10 ML UDC (200MG/10ML) 20 ML PO (04:17)
[2020-10-20] MEDS: 0.9% Normal Saline 1,000 ML 100 ML IV ×3 (04:20→21:53)
[2020-10-20] MEDS: Ondansetron 4 MG/2 ML Vial IV ×3 (04:27→23:39)
[2020-10-20 07:19] LABS: Absolute Neutrophil Count 2.4 X10^3/uL (2.0-7.7); Hematocrit 41.5 % (40-54); Hemoglobin 14.3 g/dL (13.0-16.5); Lymphocyte % 21.1 % (19-41); Mean Corp Hgb Conc 34.5 g/dL (32-36); Mean Corpuscular Hgb 30.6 pg (27.0-32.0); Mean Corpuscular Volume 88.9 fL (80-94); Mean Platelet Vol. 9.5 fl (6.2-12.0); Monocyte# 0.21 X10^3/uL; Monocyte% 6.3 % (0-10); NRBC Flagged by Analyzer 0 % (0-5); Neutrophil # 2.38 X10^3/uL (2.7-7.7); Neutrophil % 71.7 % (47-70); Platelet Count 148 K/mm3 (150-450); RBC Distribution Width CV 12.8 % (11.6-14.6); RBC Distribution Width SD 41.5 fl (35.1-43.9); Red Blood Count 4.67 M/mm3 (4.6-6.2); White Blood Count 3.3 K/mm3 (4.4-11.0)
[2020-10-20 07:40] LABS: AST(SGOT) 32 U/L (15-37); Alanine Aminotransfer ALT/SGPT 32 U/L (16-61); Albumin, Serum 3.2 g/dL (3.2-5.0); Alkaline Phosphatase 45 U/L (45-117); Anion Gap 7 (5-15); BUN 18 mg/dL (7-18); BUN/Creat Ratio 32.8 RATIO (10-20); Calcium,Total 8.3 mg/dL (8.5-10.1); Chloride 109 mmol/L (98-107); Creatinine, Serum 0.55 mg/dL (0.70-1.30); EST Glomerular Filtration Rate 190 mL/min (>60); Est Glom Filt Rate - Afr Amer 230 mL/min (>60); Estimated Creatinine Clearance 208.31 ml/min; Globulin 3.2 g/dL (2.2-4.2); Glucose 136 mg/dL (74-106); Potassium 3.9 mmol/L (3.5-5.1); Protein, Total 6.4 g/dL (6.4-8.2); Sodium Level 142 mmol/L (136-145)
[2020-10-20] MEDS: Famotidine 20 MG Tablet PO ×2 (09:37→21:50)
[2020-10-20] MEDS: Enoxaparin 40 MG/0.4 ML Syringe SC ×2 (09:38→21:50)
[2020-10-20] MEDS: dexAMETHasone 10 MG/ML Vial 6 MG IV (09:38)
--- NOTE | 2020-10-20 11:42 | PN.HOSP_ITS ---
Subjective Subjective Patient seen and examined. He felt well and said he had had a bit of nausea but no vomiting. He was on room air and did not feel short of breath. He denied any fever or chills but did admit to lethargic. Review of systems otherwise negative. He has been managed for COVID-19 infection. Objective Data Objective Data Vital Signs: Vital Signs Temp Pulse Resp BP Pulse Ox 98.5 F 79 18 117/70 95 10/20/20 09:28 10/20/20 09:28 10/20/20 09:28 10/20/20 09:28 10/20/20 09:28 Oxygen Delivery Method Room Air Weight: 226 lb 10.163 oz Body Mass Index (BMI) 27.4 Intake & Output: Intake and Output for Last 24 Hours 10/18/20 10/19/20 10/20/20 23:59 23:59 23:59 Intake Total 220 / 220 1000 / 1000 Output Total 220 / 220 Balance 0 / 0 1000 / 1000 Lab / Micro Data Result Diagrams: 10/20/20 06:42 10/20/20 06:42 Labs: Laboratory Results - last 24 hr 10/19/20 12:32: WBC 5.8, RBC 4.94, Hgb 15.3, Hct 42.8, MCV 86.6, MCH 31.0, MCHC 35.7, RDW Std Deviation 39.8, RDW Coeff of Jessica 12.4, Plt Count 149 L, MPV 9.1, Immature Gran % (Auto) 0.500, Neut % (Auto) 84.7 H, Lymph % (Auto) 10.1 L, [place] % (Auto) 4.5, Eos % (Auto) 0.0, Baso % (Auto) 0.2, Absolute Neuts (auto) 4.9, Absolute Lymphs (auto) 0.59 L, Nucleated RBC % 0, Differential Comment SCANNED 10/19/20 12:32: Sodium 140, Potassium 3.7, Chloride 105, Carbon Dioxide 27.0, Anion Gap 8, BUN 14, Creatinine 0.82, Estim Creat Clear Calc 139.72, Est GFR (MDRD) Af Amer 145, Est GFR (MDRD) Non-Af 120, BUN/Creatinine Ratio 17.2, Glucose 100, Calcium 8.6 10/19/20 12:32: Lactic Acid 1.0 10/19/20 12:32: Ferritin 684 H, Total Bilirubin 1.10 H, Direct Bilirubin 0.33 H, AST 42 H, ALT 39, Alkaline Phosphatase 53, Lactate Dehydrogenase 542 H, Troponin I High Sens 6.2, C-React Prot Ext Range 110.00 H, Total Protein 7.1, Albumin 3.5, Globulin 3.6 10/19/20 12:32: B-Natriuretic Peptide 2.0 10/19/20 14:10: D-Dimer Quant (PE/DVT) 0.95 H* 10/19/20 14:10: Procalcitonin 0.10 H 10/20/20 06:42: WBC 3.3 L, RBC 4.67, Hgb 14.3, Hct 41.5, MCV 88.9, MCH 30.6, MCHC 34.5, RDW Std Deviation 41.5, RDW Coeff of Jessica 12.8, Plt Count 148 L, MPV 9.5, Immature Gran % (Auto) 0.900, Neut % (Auto) 71.7 H, Lymph % (Auto) 21.1, [place] % (Auto) 6.3, Eos % (Auto) 0.0, Baso % (Auto) 0.0, Absolute Neuts (auto) 2.4, Absolute Lymphs (auto) 0.70 L, Nucleated RBC % 0 10/20/20 06:42: Sodium 142, Potassium 3.9, Chloride 109 H, Carbon Dioxide 26.0, Anion Gap 7, BUN 18, Creatinine 0.55 L, Estim Creat Clear Calc 208.31, Est GFR (MDRD) Af Amer 230, Est GFR (MDRD) Non-Af 190, BUN/Creatinine Ratio 32.8 H, Glucose 136 H, Calcium 8.3 L, Total Bilirubin 1.00, AST 32, ALT 32, Alkaline Phosphatase 45, Total Protein 6.4, Albumin 3.2, Globulin 3.2, Albumin/Globulin Ratio 1.0 Micro: Microbiology 10/19/20 17:20 Sputum, Expectorated/Coughed Gram Stain - Final 10/19/20 14:11 Mucosa - Nasopharyngeal Respiratory Panel (PCR) - Final 10/19/20 17:20 Urine, Clean Catch Legionella Antigen - Final 10/19/20 17:20 Urine, Clean Catch Streptococcus pneumoniae Antigen (M - Final Radiography Diagnostic Testing: Radiology Impression Chest X-Ray 10/19/20 12:45 IMPRESSION: Bilateral pneumonia. CT may be useful. Electronically Signed: David Jones MD at 13:01 EDT Tel , Service support , Physical Exam Const alert, oriented x3 and no apparent distress Orientation / Consciousness: lethargic Exam Limitations: no limitations Nutritional Appearance: obese HEENT head/scalp atraumatic Head and Scalp: normocephalic Mouth: dry mucous membranes Eyes PERRL, EOMs intact bilaterally and conjunctivae normal Neck no lymphadenopathy Resp normal respiratory effort, no retractions, no use of accessory muscles and clear to auscultation bilaterally Cardio regular rate, regular rhythm, S1 normal heart sound, S2 normal heart sound and no murmurs GI normal to inspection, nondistended, normoactive bowel sounds, soft to palpation, non-tender and non-distended Extremity normal to inspection, full ROM and no clubbing, cyanosis or edema Peripheral Pulses: Yes pulses 2+ throughout Skin no rashes or lesions noted Neuro oriented x3 Sensorium / Orientation: awake and alert Psych affect normal Assessment & Plan Assessment/Plan (1) COVID-19 determined by clinical diagnostic criteria: (2) Dehydration: PLAN: #COVID 19 infection * patient feels weak and lethargic; he remains on room air * continue gentle hydration with IVF adn supportive care * on decadron; not on remdesivir as he is not hypoxic * complete 10 day course of steroids. * CXR did show bilateral pneumonia indicative of covid. * symptoms started on October 08; tested positive on 10/14/2020 * will need to remain in isolation for 20 days since symptoms started. * breathing treatment prn with bronchodilators * #Elevated D dimer: * Dimer was 0.95. On lovenox 40mg daily. * Will increase to 40mg bid due to risk for hypercoagulability in light of elevated D dimer. #Anxiety and depression: not on meds. To follow up with his PCP for evaluation and management DVT prophylaxis: on lovenox; will increase to 40mg bid. Charges/Coding Visit Charges Inpatient E&M: 45318 Subs Hosp L3
[2020-10-20] MEDS: 0.9% Saline Lock 10 ML Syringe IV (14:48)
--- NOTE | 2020-10-20 14:55 | CASEMGMT ---
ETIENNE SERRANO Assessment: Face to Face with pt for initial transition planning/care coordination assessment. RN MAGGIE introduced self and role at [facility], pt voices understanding and consents to assessment. Pt is A/O x4 and answers all questions appropriately at this time. Pt on RA in no distress. Nurse Chintan in pt room as well. Care providers, pharmacy, and demographics verified/updated. Admitting Dx: COVID PNA, hypoxia PCP:Pt denies having a PCP. Pamphlet of local healthcare directory given to pt nurse to be given to pt. Specialists:Pt denies having any specialists. Preferred Pharmacy: [facility] Retail Insurance: [employer] Prescription Benefit: yes LW/HPOA: Pt denies having a LW/DPOA. LNOK: Sylvester Ulloa, father; Maria De Jesus Bey, sig other Living Arrangements: Pt lives with sig other in a single story house with 3 steps to enter. Pt is I in ADL's and denies concerns at home. Transportation: Pt drives self and denies concerns with transportation. DME/HHC: Pt denies having any DME in the home and denies hx of HHC. Pt states no concerns with going home at time of dc. Pt sig other had COVID and is now out of quarantine. Pt states he is able to be quarantined post hospitalization and has family who can provide groceries and supplies to him. Pt states he was tested for COVID at [facility] urgent care [place]. Pt states no further concerns/needs. Discussed the possibility of pt needing O2 upon dc. Should this be the case pt states he has no preference for DME companies. Provided a verbal list of local in network DME companies. CM to follow. Advised pt to ask CM if any further question/concerns/needs arise, voices understanding. Pt Goal: Home Plan: Home
[2020-10-20] MEDS: Temazepam 15 MG Capsule PO (23:39)
[2020-10-21] VITALS (7 sets, daily range): BP systolic 120–129; BP diastolic 66–73; PULSE 62–76; RESP 18–20; TEMP 36.6–37.1; O2SAT 92–97
[2020-10-21] MEDS: 0.9% Normal Saline 1,000 ML 100 ML IV (06:52)
[2020-10-21 08:58] LABS: Absolute Lymphocyte Count 0.84 X10^3/uL (0.83-4.51); Absolute Neutrophil Count 3.9 X10^3/uL (2.0-7.7); Basophil# 0.01 X10^3/uL; Basophil% 0.2 % (0-1); Hematocrit 40.1 % (40-54); Hemoglobin 13.8 g/dL (13.0-16.5); Lymphocyte # 0.84 X10^3/ul (0.83-4.51); Lymphocyte % 16.6 % (19-41); Mean Corp Hgb Conc 34.4 g/dL (32-36); Mean Corpuscular Hgb 30.7 pg (27.0-32.0); Mean Corpuscular Volume 89.3 fL (80-94); Mean Platelet Vol. 9.2 fl (6.2-12.0); Monocyte# 0.28 X10^3/uL; Monocyte% 5.5 % (0-10); NRBC Flagged by Analyzer 0 % (0-5); Neutrophil # 3.89 X10^3/uL (2.7-7.7); Neutrophil % 77.1 % (47-70); Platelet Count 154 K/mm3 (150-450); RBC Distribution Width CV 12.8 % (11.6-14.6); RBC Distribution Width SD 42.2 fl (35.1-43.9); Red Blood Count 4.49 M/mm3 (4.6-6.2); White Blood Count 5.1 K/mm3 (4.4-11.0)
[2020-10-21] MEDS: dexAMETHasone 10 MG/ML Vial 6 MG IV (09:21)
[2020-10-21] MEDS: Famotidine 20 MG Tablet PO (09:21)
[2020-10-21] MEDS: Enoxaparin 40 MG/0.4 ML Syringe SC (09:22)
[2020-10-21 09:45] LABS: Anion Gap 9 (5-15); BUN 20 mg/dL (7-18); BUN/Creat Ratio 30.8 RATIO (10-20); Calcium,Total 8.3 mg/dL (8.5-10.1); Chloride 112 mmol/L (98-107); Creatinine, Serum 0.65 mg/dL (0.70-1.30); EST Glomerular Filtration Rate 156 mL/min (>60); Est Glom Filt Rate - Afr Amer 189 mL/min (>60); Estimated Creatinine Clearance 176.26 ml/min; Glucose 101 mg/dL (74-106); Sodium Level 146 mmol/L (136-145)
--- NOTE | 2020-10-21 11:12 | DS.PCM_ITS ---
Providers Date of Admission: 10/19/20 Primary Care Physician: No Primary Care Phys Reason For Visit: COVID PNA, HYPOXIA Diagnosis Discharge Diagnosis (1) COVID-19 determined by clinical diagnostic criteria: Status: Acute Code(s): U07.1 - COVID-19 (2) Dehydration: Status: Acute Code(s): E86.0 - Dehydration Medications at Discharge Home Medications ibuprofen 600 mg PO Q6H PRN PRN #20 tab 10/15/20 ondansetron HCl [Zofran] 4 mg PO Q8H PRN #14 tab 10/15/20 albuterol sulfate 1 - 2 inh INHALATION Q4H PRN 10/19/20 multivitamin 1 tab PO DAILY 10/19/20 apixaban [Eliquis] 2.5 mg PO BID #28 tab 10/21/20 dexamethasone 6 mg PO DAILY #8 tab 10/21/20 Hospital Course Operations None Procedures None Summary of Care Provided Minutes Spent on Discharge: 35 Hospital Course: Patient is a 25-year-old male with a past medical history as outlined which includes anxiety. He was admitted through the ED on 10/19/2020 with a complaint of cough, lightheadedness, nausea and vomiting. His symptoms started on October 08, 2020 and he was evaluated in the ED on 10/14/2020. There was concern for worsening Covid so he was reviewed at that time with CTA of the chest which showed no evidence of PE but showed evidence of bilateral Covid pneumonia. He came back to the ED on 10/19/2020 with worsening fatigue, malaise, body aches and minimally productive cough as well as shortness of breath and nausea. Chest x-ray showed bilateral patchy alveolar opacities consistent with COVID-19 pneumonia. He was admitted and managed for COVID-19 infection. He was started on IV Decadron. Patient remained on room air throughout and did not require any oxygen. Patient symptoms gradually improved and his weakness and nausea and vomiting subsequently resolved. He remained stable and was d ischarged home on 10/21/2020. Patient counseled that he would need to remain in isolation till age 18 2020 which would be 20 days since his symptoms started. Patient had not received Covid vaccine and was counseled that it would be a good idea to receive the Covid vaccine after he recuperated from his current infection. Patient was also discharged on Eliquis 2.5 mg twice daily for 14 days on account of elevated D-dimer as he is at high risk for hypercoagulability in light of Covid infection. He was referred to [facility] to establish PCP care as he does not have a PCP. Patient seen and examined prior to discharge. He felt well and had no complaints. His symptoms had resolved and he felt ready to go home. Review of systems otherwise negative. Labs and vitals reviewed. Home medication reviewed and reconciled. Physical Exam Const alert, oriented x3 and no apparent distress General Appearance: cooperative, comfortable, well kempt and well developed Orientation / Consciousness: awake, oriented to person, oriented to place and oriented to time Exam Limitations: no limitations Nutritional Appearance: obese HEENT normocephalic, head/scalp atraumatic, hearing grossly normal bilaterally and moist oral mucous membranes Eyes PERRL, EOMs intact bilaterally and conjunctivae normal Neck no lymphadenopathy Resp normal respiratory effort, no retractions, no use of accessory muscles and clear to auscultation bilaterally Cardio regular rate, regular rhythm, S1 normal heart sound, S2 normal heart sound and no murmurs GI normal to inspection, nondistended, normoactive bowel sounds, soft to palpation, non-tender and non-distended Extremity normal to inspection, full ROM and no clubbing, cyanosis or edema Skin no rashes or lesions noted Neuro oriented x3 Sensorium / Orientation: awake and alert Psych affect normal Medical Records Data Medical Nutrition Assessment Dietitian: Nutrition Therapy Diagnosis Start: 10/19/20 16:37 Freq: Status: Active Protocol: Document 10/20/20 15:31 BP (Rec: 10/20/20 15:32 BP [id number]) Nutrition Malnutrition Evidence of Malnutrition Exists No Intake Problem Inadequate Energy Intake Etiology Predicted inadequate energy intake related to decreased appetite from acute illness Signs/Symptoms as evidenced by pt report per EMR eating poorly due to decreased appetite. Status Active Problem Recommendation Dietitian Recommendations/Changes Continue Regular diet. Will defer ONS at this time - will provided as warranted at time of f/u. 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 Weight / BMI Weight Weight: 226 lb 6.636 oz Body Mass Index (BMI) 27.4 ABG / Lab / Microbiology Data Result Diagrams: 10/21/20 08:45 10/21/20 08:45 Laboratory: Laboratory Results - last 24 hr 10/21/20 08:45: WBC 5.1, RBC 4.49 L, Hgb 13.8, Hct 40.1, MCV 89.3, MCH 30.7, MCHC 34.4, RDW Std Deviation 42.2, RDW Coeff of Jessica 12.8, Plt Count 154, MPV 9.2, Immature Gran % (Auto) 0.600, Neut % (Auto) 77.1 H, Lymph % (Auto) 16.6 L, [place] % (Auto) 5.5, Eos % (Auto) 0.0, Baso % (Auto) 0.2, Absolute Neuts (auto) 3.9, Absolute Lymphs (auto) 0.84, Nucleated RBC % 0 10/21/20 08:45: Sodium 146 H, Potassium 4.0, Chloride 112 H, Carbon Dioxide 25.0, Anion Gap 9, BUN 20 H, Creatinine 0.65 L, Estim Creat Clear Calc 176.26, Est GFR (MDRD) Af Amer 189, Est GFR (MDRD) Non-Af 156, BUN/Creatinine Ratio 30.8 H, Glucose 101, Calcium 8.3 L Microbiology: Microbiology 10/19/20 17:20 Sputum, Expectorated/Coughed Gram Stain - Final 10/19/20 17:20 Sputum, Expectorated/Coughed Respiratory Culture - Preliminary Appears to be normal respiratory alexandru. Further studies to follow. 10/19/20 14:11 Mucosa - Nasopharyngeal Respiratory Panel (PCR) - Final 10/19/20 17:20 Urine, Clean Catch Legionella Antigen - Final 10/19/20 17:20 Urine, Clean Catch Streptococcus pneumoniae Antigen (M - Final D/C Instructions Discharge Diet: No restrictions Discharge Activity: Return to Normal Activity Weight Bearing Status: Weight bearing as tolerated Call your doctor if you observe: Fever of 101 or Higher, Shortness of breath, Swelling in the ankles and Increased palpitations (irregular heartbeat) Meaningful Use Info Meaningful Use Diagnoses (Choose all that apply): None applicable Discharge Plan Admission Admit Date/Time: 10/19/20 13:43 Primary Reason for Your Visit: COVID 19 infection Attending Provider: Abi Hutchinson Primary Care Provider: Care Physician,No Primary Instructions Patient Instructions: Coronavirus Disease 2019 (COVID-19): Overview, Caring for Someone Who Has COVID-19 Additional Instructions / Restrictions: remain in self isolation till 10/29/2020 Discharge Orders/Prescriptions Prescriptions: New dexamethasone 6 mg tablet 6 mg PO DAILY Qty: 8 RF: 0 Eliquis 2.5 mg tablet 2.5 mg PO BID Qty: 28 RF: 0 Continued ondansetron HCl [Zofran] 4 mg tablet 4 mg PO Q8H PRN (Reason: nausea and vomiting) Qty: 14 RF: 0 ibuprofen 600 mg tablet 600 mg PO Q6H PRN PRN (Reason: fever or pain) Qty: 20 RF: 0 multivitamin Tablet 1 tab PO DAILY RF: 0 albuterol sulfate 90 mcg/actuation HFA aerosol inhaler 1 - 2 inh INHALATION Q4H PRN (Reason: SOB) RF: 0 Referrals / Follow Up: Tunde Barrow MD [STAFF PHYSICIAN] - Within 2 Weeks (call office to establish PCP relationship) Care Physician,No Primary [Primary Care Provider] - Disposition Disposition (needs filled in before D/C Order can be placed): Home, Self Care Charges/Coding Visit Charges Inpatient E&M: 08784 Disch Hosp
== END 2020-10-21 15:21 | disposition home or self-care (01) ==
LOC: ED 13:26 → MS3 13:57
PROVIDERS: Admitting Provider Family Medicine; Emergency Provider Emergency Medicine; Visit Provider Student in an Organized Health Care Education/Training Program
DX: U07.1 COVID-19 (principal); J12.82 Pneumonia due to coronavirus disease 2019; E86.0 Dehydration; R09.02 Hypoxemia; R79.89 Other specified abnormal findings of blood chemistry
CPT/HCPCS: 36415; 71045; 80048; 80053; 80076; 82728; 83605; 83615; 83880; 84145; 84484; 85025; 85379; 86140; 87040; 87070; 87205; 87449; 87633; 96361; 96372; 96374; 96375; 96376; 99218; 99251; 99285; J7030; A4216; G0378; G0463; J2405

== ENCOUNTER → 2021-08-22 | Outpatient (CLI) | payer BC, SELFPAY ==
[2021-08-22 16:40] LABS: Absolute Lymphocyte Count 1.93 X10^3/uL (0.83-4.51); Absolute Neutrophil Count 4.8 X10^3/uL (2.0-7.7); Basophil# 0.03 X10^3/uL; Basophil% 0.4 % (0-1); Eosinophil# 0.06 X10^3/uL; Eosinophils% 0.8 % (0-5); Hematocrit 42.4 % (40-54); Hemoglobin 15.5 g/dL (13.0-16.5); Lymphocyte # 1.93 X10^3/ul (0.83-4.51); Lymphocyte % 25.9 % (19-41); Mean Corp Hgb Conc 36.6 g/dL (32-36); Mean Corpuscular Hgb 32.4 pg (27.0-32.0); Mean Corpuscular Volume 88.7 fL (80-94); Mean Platelet Vol. 9.8 fl (6.2-12.0); Monocyte# 0.61 X10^3/uL; Monocyte% 8.2 % (0-10); NRBC Flagged by Analyzer 0 % (0-5); Neutrophil # 4.78 X10^3/uL (2.7-7.7); Neutrophil % 64.3 % (47-70); Platelet Count 179 K/mm3 (150-450); RBC Distribution Width SD 42.3 fl (35.1-43.9); Red Blood Count 4.78 M/mm3 (4.6-6.2); White Blood Count 7.4 K/mm3 (4.4-11.0)
[2021-08-22 17:22] LABS: ALB/GLOB Ratio 1.3 RATIO (0.9-2.4); AST(SGOT) 34 U/L (15-37); Alanine Aminotransfer ALT/SGPT 80 U/L (16-61); Alkaline Phosphatase 84 U/L (45-117); Anion Gap 5 (5-15); BUN 18 mg/dL (7-18); BUN/Creat Ratio 14.8 RATIO (10-20); Calcium,Total 8.9 mg/dL (8.5-10.1); Chloride 109 mmol/L (98-107); Cholesterol 172 mg/dL (200); Creatinine, Serum 1.22 mg/dL (0.70-1.30); EST Glomerular Filtration Rate 75 mL/min (>60); Est Glom Filt Rate - Afr Amer 91 mL/min (>60); Glucose 85 mg/dL (74-106); High Density Lipoprotein 32 mg/dL; Potassium 3.8 mmol/L (3.5-5.1); Sodium Level 142 mmol/L (136-145); Triglycerides 434 mg/dL
== END | disposition home or self-care (01) ==
LOC: BIMLAB 15:46
PROVIDERS: PCP Internal Medicine; Referring Provider Internal Medicine; Visit Provider Internal Medicine
DX: G47.10 Hypersomnia, unspecified (principal); E66.9 Obesity, unspecified
CPT/HCPCS: 36415; 80053; 80061; 85025

== ENCOUNTER → 2021-10-06 | Outpatient (CLI) | payer OTHER, SELFPAY | END | disposition home or self-care (01) | PROVIDERS: PCP Internal Medicine; Referring Provider Internal Medicine; Visit Provider Internal Medicine | DX: G47.10 Hypersomnia, unspecified (principal); E66.9 Obesity, unspecified | CPT/HCPCS: 95806 ==

== ENCOUNTER → 2021-11-02 | Outpatient (CLI) | payer OTHER, SELFPAY | END | disposition home or self-care (01) | LOC: SL 11-03 07:21 | PROVIDERS: PCP Internal Medicine; Visit Provider Internal Medicine | DX: G47.33 Obstructive sleep apnea (adult) (pediatric) (principal) | CPT/HCPCS: 95811 ==

== ENCOUNTER → 2021-12-23 | Outpatient (CLI) | payer OTHER, SELFPAY | END | disposition home or self-care (01) | LOC: SL 08:48 | PROVIDERS: PCP Internal Medicine; Visit Provider Internal Medicine | DX: Z00.00 Encounter for general adult medical examination without abnormal findings (principal) ==

== ENCOUNTER → 2022-07-10 | Outpatient (CLI) | payer OTHER, SELFPAY ==
[2022-07-10 12:33] LABS: Absolute Lymphocyte Count 1.24 X10^3/uL (0.83-4.51); Absolute Neutrophil Count 4.1 X10^3/uL (2.0-7.7); Basophil# 0.02 X10^3/uL; Basophil% 0.3 % (0-1); Eosinophil# 0.05 X10^3/uL; Eosinophils% 0.9 % (0-5); Hematocrit 47.4 % (40-54); Hemoglobin 16.2 g/dL (13.0-16.5); Lymphocyte # 1.24 X10^3/ul (0.83-4.51); Lymphocyte % 21.1 % (19-41); Mean Corp Hgb Conc 34.2 g/dL (32-36); Mean Corpuscular Hgb 31.9 pg (27.0-32.0); Mean Corpuscular Volume 93.3 fL (80-94); Mean Platelet Vol. 9.9 fl (6.2-12.0); Monocyte# 0.41 X10^3/uL; NRBC Flagged by Analyzer 0 % (0-5); Neutrophil # 4.14 X10^3/uL (2.7-7.7); Neutrophil % 70.4 % (47-70); Platelet Count 169 K/mm3 (150-450); RBC Distribution Width CV 13.6 % (11.6-14.6); RBC Distribution Width SD 46.7 fl (35.1-43.9); Red Blood Count 5.08 M/mm3 (4.6-6.2); White Blood Count 5.9 K/mm3 (4.4-11.0)
[2022-07-10 13:04] LABS: Vitamin B12 469 pg/mL (211-911)
[2022-07-10 13:05] LABS: ALB/GLOB Ratio 1.2 RATIO (0.9-2.4); AST(SGOT) 31 U/L (15-37); Alanine Aminotransfer ALT/SGPT 71 U/L (16-61); Albumin, Serum 4.2 g/dL (3.2-5.0); Alkaline Phosphatase 94 U/L (45-117); Anion Gap 6 (5-15); BUN 19 mg/dL (7-18); BUN/Creat Ratio 20.8 RATIO (10-20); Calcium,Total 9.4 mg/dL (8.5-10.1); Chloride 108 mmol/L (98-107); Creatinine, Serum 0.92 mg/dL (0.70-1.30); EST Glomerular Filtration Rate 104 mL/min (>60); Est Glom Filt Rate - Afr Amer 126 mL/min (>60); Globulin 3.4 g/dL (2.2-4.2); Glucose 97 mg/dL (74-106); Potassium 4.9 mmol/L (3.5-5.1); Protein, Total 7.6 g/dL (6.4-8.2); Sodium Level 142 mmol/L (136-145); T4 Free Direct 0.89 ng/dL (0.76-1.46); Thyroid Stim Hormone (TSH) 1.84 uIU/mL (0.358-3.74)
== END | disposition home or self-care (01) ==
LOC: BIMLAB 09:04
PROVIDERS: PCP Internal Medicine; Referring Provider Internal Medicine; Visit Provider Internal Medicine
DX: F41.9 Anxiety disorder, unspecified (principal); F32.A Depression, unspecified
CPT/HCPCS: 36415; 80053; 82306; 82607; 84439; 84443; 85025

== ENCOUNTER → 2024-05-14 | Outpatient (CLI) | payer OTHER, SELFPAY ==
[2024-05-14 12:37] LABS: Absolute Lymphocyte Count 1.72 X10^3/uL (0.83-4.51); Absolute Neutrophil Count 3.6 X10^3/uL (2.0-7.7); Basophil# 0.02 X10^3/uL; Basophil% 0.3 % (0-1); Eosinophil# 0.05 X10^3/uL; Eosinophils% 0.9 % (0-5); Hematocrit 45.1 % (40-54); Hemoglobin 16.1 g/dL (13.0-16.5); Lymphocyte # 1.72 X10^3/ul (0.83-4.51); Lymphocyte % 29.5 % (19-41); Mean Corp Hgb Conc 35.7 g/dL (32-36); Mean Corpuscular Hgb 32.1 pg (27.0-32.0); Mean Corpuscular Volume 89.8 fL (80-94); Mean Platelet Vol. 9.8 fl (6.2-12.0); Monocyte# 0.45 X10^3/uL; Monocyte% 7.7 % (0-10); NRBC Flagged by Analyzer 0 % (0-5); Neutrophil # 3.57 X10^3/uL (2.7-7.7); Neutrophil % 61.3 % (47-70); Platelet Count 171 K/mm3 (150-450); RBC Distribution Width SD 42.2 fl (35.1-43.9); Red Blood Count 5.02 M/mm3 (4.6-6.2); White Blood Count 5.8 K/mm3 (4.4-11.0)
[2024-05-14 13:52] LABS: ALB/GLOB Ratio 1.8 RATIO (0.9-2.4); AST(SGOT) 45 U/L (<=37); Alanine Aminotransfer ALT/SGPT 102 U/L (<=46); Albumin, Serum 4.7 g/dL (3.5-5.0); Alkaline Phosphatase 82 U/L (40-129); Anion Gap 13 (5-15); BUN 16 mg/dL (4-19); BUN/Creat Ratio 16.8 RATIO (10-20); Calcium,Total 9.6 mg/dL (7.6-11.0); Carbon Dioxide 22.4 mmol/L (21.0-32.0); Chloride 105 mmol/L (98-108); Cholesterol 166 mg/dL (<=200); Creatinine, Serum 0.97 mg/dL (0.70-1.20); EST Glomerular Filtration Rate 107 (>60); Globulin 2.6 g/dL (2.2-4.2); Glucose 98 mg/dL (70-99); High Density Lipoprotein 38 mg/dL; Low Density Lipoprotein Calc. 106 mg/dL; Potassium 4.6 mmol/L (3.3-5.1); Protein, Total 7.3 g/dL (5.9-8.4); Sodium Level 140 mmol/L (133-145); Triglycerides 108 mg/dL; Very Low Density Lipoprotein 22 mg/dL (5-40); cholesterol:hdl ratio screen 4.35
[2024-05-15 11:56] LABS: Hepatitis C Antibody Nonreactive (Nonreactive)
[2024-05-16 11:08] LABS: Hepatitis A IgM Antibody Negative (Negative); Hepatitis Be Ag Negative (Negative)
== END | disposition home or self-care (01) ==
LOC: BIMLAB 09:58
PROVIDERS: PCP Internal Medicine; Referring Provider Internal Medicine; Visit Provider Internal Medicine
DX: I10 Essential (primary) hypertension (principal); R74.8 Abnormal levels of other serum enzymes
CPT/HCPCS: 36415; 80053; 80061; 85025; 86709; 86803; 87350

== ENCOUNTER → 2024-05-29 | Outpatient (CLI) | payer OTHER, SELFPAY ==
--- NOTE | 2024-05-29 07:25 | US_ITS ---
EXAM: US Abdomen Limited, Right Upper Quadrant CLINICAL INDICATION: ELEVATED LIVER ENZYMES TECHNIQUE: Real-time ultrasound of the right upper quadrant with image documentation. COMPARISON: No relevant prior studies available. FINDINGS: LIVER: Hepatopetal blood flow in main portal vein. Liver measures up to 18.7 cm. Fatty infiltration of the liver. No intrahepatic bile duct dilation. GALLBLADDER: Negative Joy's sign was reported by the market risk analyst. No gallstones. COMMON BILE DUCT: Unremarkable as visualized. No stones. No dilation. Common bile duct measures 0.2 cm in diameter. PANCREAS: Unremarkable as visualized. RIGHT KIDNEY: Unremarkable. No stones. No hydronephrosis. The right kidney measures 11.3 x 6.3 x 6.2 cm. US/Liver IMPRESSION: Hepatomegaly with fatty infiltration. Reading [facility]
== END | disposition home or self-care (01) ==
LOC: US 07:24
PROVIDERS: PCP Internal Medicine; Referring Provider Internal Medicine; Visit Provider Internal Medicine
DX: R74.8 Abnormal levels of other serum enzymes (principal)
CPT/HCPCS: 76705

== ENCOUNTER → 2024-10-15 | Outpatient (CLI) | payer OTHER, SELFPAY ==
--- NOTE | 2024-10-15 15:57 | RAD_ITS ---
PROCEDURE: ANKLE MIN 3 VIEWS 10/15/2024 REASON FOR EXAM: PAIN TECHNIQUE: ANKLE MIN 3 VIEWS COMPARISON: None RAD/Ankle min 3 Views IMPRESSION: No acute fracture or dislocations. Minimal scattered degenerative changes. No large joint effusion. Minimal diffuse soft tissue edema. No radiographic foreign body. Reading Location: [id number]
--- NOTE | 2024-10-15 15:57 | RAD_ITS ---
PROCEDURE: CHEST PA AND LATERAL 10/15/2024 REASON FOR EXAM: CP TECHNIQUE: CHEST PA AND LATERAL COMPARISON: 10/19/2020 FINDINGS: No focal consolidation. No pleural effusion or pneumothorax. Cardiac silhouette is within normal limits. No acute fractures. RAD/Chest PA and Lateral IMPRESSION: No focal consolidation. Reading Location: [id number]
--- NOTE | 2024-10-15 15:57 | RAD_ITS ---
PROCEDURE: CHEST PA AND LATERAL 10/15/2024 REASON FOR EXAM: CP TECHNIQUE: CHEST PA AND LATERAL COMPARISON: 10/19/2020 FINDINGS: No focal consolidation. No pleural effusion or pneumothorax. Cardiac silhouette is within normal limits. No acute fractures. RAD/Chest PA and Lateral IMPRESSION: No focal consolidation. Reading Location: [id number]
--- NOTE | 2024-10-15 15:57 | RAD_ITS ---
PROCEDURE: ANKLE MIN 3 VIEWS 10/15/2024 REASON FOR EXAM: PAIN TECHNIQUE: ANKLE MIN 3 VIEWS COMPARISON: None RAD/Ankle min 3 Views IMPRESSION: No acute fracture or dislocations. Minimal scattered degenerative changes. No large joint effusion. Minimal diffuse soft tissue edema. No radiographic foreign body. Reading Location: [id number]
== END | disposition home or self-care (01) ==
PROVIDERS: PCP Internal Medicine
DX: R07.9 Chest pain, unspecified (principal); M25.572 Pain in left ankle and joints of left foot
CPT/HCPCS: 71046; 73610